=== PATIENT | male | born 1995 | race Caucasian/White ===

== ENCOUNTER 2025-02-20 15:15 | Emergency (ER) | payer BC ==
[~2025-02-20] VITALS: Ht 175.3 cm; Wt 86.0 kg
[2025-02-20 15:37] VITALS: O2SAT 100
[2025-02-20] MEDS ORDERED: IBUP-1455 MT (17:33)
[2025-02-20] MEDS: IBUPROFEN 600MG TABLET PO ONE (18:04)
[2025-02-20 18:10] VITALS: BP 116/81; PULSE 62; RESP 17; TEMP 36.8; O2SAT 99
== END 2025-02-20 18:10 | disposition home or self-care (01) ==
LOC: ER 15:15
DX: S63.613A Unspecified sprain of left middle finger, initial encounter (principal); W19.XXXA Unspecified fall, initial encounter; Y93.89 Activity, other specified; Y92.89 Other specified places as the place of occurrence of the external cause; Y99.8 Other external cause status
CPT/HCPCS: 29130; 73110; 73130; 99284